=== PATIENT | male | born 1955 ===

== ENCOUNTER 2018-04-14 06:17 | Day surgery (SDC) | payer OTHER ==
[~2018-04-14] VITALS: Ht 175.3 cm; Wt 105.0 kg
[~2018-04-14 06:17] MED LIST: HYDACE5 PO; IBUP800 PO; PROACE100 PO
[2018-04-14] MEDS ORDERED: NAPR220 (06:47)
[2018-04-14] MEDS ORDERED: LOSA25 (06:48)
== END 2018-04-14 11:09 | disposition home or self-care (01) ==
LOC: ORSCSDS 06:17
PROVIDERS: Orthopaedic Surgery
PROC: 0RNJ4ZZ Release Right Shoulder Joint, Percutaneous Endoscopic Approach (ICD-10-PCS; principal; 2018-04-14 07:30)
PROC: 0LQ14ZZ Repair Right Shoulder Tendon, Percutaneous Endoscopic Approach (ICD-10-PCS; principal; 2018-04-14 07:30)
DX: M75.121 Complete rotator cuff tear or rupture of right shoulder, not specified as traumatic (principal); M75.41 Impingement syndrome of right shoulder; M75.21 Bicipital tendinitis, right shoulder; I10 Essential (primary) hypertension; Z79.899 Other long term (current) drug therapy
CPT/HCPCS: C1713; J0171; J0690; J1100; J2250; J2405; J3010; J7120